=== PATIENT | male | born 1980 | race African-American/Black ===

== ENCOUNTER 2018-08-28 23:20 | Emergency (ER) | payer SELFPAY ==
[~2018-08-28] VITALS: Ht 165.1 cm; Wt 81.6 kg
[2018-08-28 23:20] VITALS: BP_SYST 146
[2018-08-29 00:30] VITALS: BP_SYST 133
== END 2018-08-29 00:30 ==
LOC: SED 23:20
DX: M79.671 Pain in right foot (principal); R03.0 Elevated blood-pressure reading, without diagnosis of hypertension
CPT/HCPCS: 99283